=== PATIENT | female | born 1940 | race Caucasian/White ===

== ENCOUNTER 2018-06-08 00:14 | Outpatient (CLI) | payer MEDICARE, BC, OTHER ==
[2018-06-08 12:30] LABS: #Basophils 0.1 thou/uL (0.0-0.2); #Eosinphils 0.3 thou/uL (0.0-0.7); #Lymphocytes 1.7 thou/uL (1.20-3.40); #Monocytes 0.6 thou/uL (0.11-0.59); %Basophils 1.5 % (0.0-1.0); %Eosinophils 4.2 % (0.0-10.0); %Monocytes 8.4 % (0.0-10.0); %Neutrophils 59.9 % (42.0-75.0); Mean Corpuscular HGB CONC 33.1 g/dL (32.0-36.0); Mean Corpuscular Volume 93.5 fL (78.0-98.0); Mean Platelet Volume 7.9 fL (7.4-10.4); Platelet Count 262 thou/uL (130-400); RBC Distribution Width 12.2 % (11.5-14.5); Red Blood Cell (RBC) Count 4.52 mill/uL (4.20-5.40); White Blood Cell (WBC) Count 6.6 thou/uL (4.8-10.8)
--- NOTE | 2018-06-08 12:44 | RAD ---
Chest 2 views HISTORY: Preop. FINDINGS: Cardiac silhouette and pulmonary vasculature are unremarkable. Mediastinum is midline. Lung s are well-inflated. No confluent airspace consolidation, pneumothorax, or pleural fluid are apparent. IMPRESSION: No active cardiopulmonary abnormalities are demonstrated.
[2018-06-08 12:49] LABS: Anion Gap 12 mmol/L (10-20); BUN (Urea Nitrogen) 25 mg/dL (9.8-20.1); Calc. Creatinine Clearance 0 mL/min (70-130); Calcium 7.9 mg/dL (7.8-10.44); Carbon Dioxide 30 mmol/L (23-31); Estimated GFR-MDRD 66; Glucose 92 mg/dL (83-110); Potassium 4.2 mmol/L (3.5-5.1)
[2018-06-08 12:53] LABS: Chloride 102 mmol/L (98-107); Sodium 140 mmol/L (136-145)
--- NOTE | 2018-06-09 22:58 | EKG ---
Test Reason : Blood Pressure : / mmHG Vent. Rate : 073 BPM Atrial Rate : 073 BPM P-R Int : 158 ms QRS Dur : 088 ms QT Int : 408 ms P-R-T Axes : 079 077 078 degrees QTc Int : 449 ms Normal sinus rhythm Possible Left atrial enlargement Anteroseptal infarct , age undetermined Abnormal ECG No previous ECGs available Confirmed by ANGUS HERNANDEZ ([id number]) on 06/09/2018 10:58:17 PM Referred By: BIANCA Confirmed By:ANGUS HERNANDEZ
== END 2018-06-08 00:15 | disposition home or self-care (01) ==
LOC: LABBT 00:14
PROVIDERS: ATTEND Specialist
DX: Z01.818 Encounter for other preprocedural examination (principal); C50.911 Malignant neoplasm of unspecified site of right female breast
CPT/HCPCS: 71046; 80048; 85025; 93005; 93010

== ENCOUNTER → 2018-06-09 | Day surgery (SDC) | payer MEDICARE, BC, OTHER ==
[2018-06-08 11:48] VITALS: BMI 29.5
[~2018-06-09] MED LIST: Bupivacaine/Epinephrine 0.25% 30 ML VIAL ONE; Dexamethasone 20 MG/5 ML VIAL ONE; Fentanyl 100 MCG/2 ML VIAL ONE; Isosulfan Blue 50 MG/5 ML VIAL ONE; Ketorolac Tromethamine 30 MG/ML VIAL ONE; Lidocaine 1% PF 5 ML VIAL ONE; Midazolam HCl 2 mg/2 ml Vial ONE; Ondansetron PF 4 MG/2 ML Vial ONE; PHENYLEPHRINE-NS 100 MCG/ML 10 ML SYRINGE ONE; PROPOFOL 200 MG/20 ML VIAL ONE; ePHEDrine 50 MG/ML VIAL ONE
--- NOTE | 2018-06-09 08:25 | MMO ---
NEEDLE AND WIRE LOCALIZATION UNDER MAMMOGRAPHIC GUIDANCE RIGHT BREAST: CLINICAL HISTORY: History of recent biopsy-proven invasive lobular carcinoma, upper inner right [address] PROCEDURE: Informed consent was obtained. Patient was escorted to the procedural suite and right breast was plac ed into compression. The right breast was prepped and draped in standard sterile fashion and targeting was performed of the site of interest of recent biopsy and adjacent marking clip. Topical a nesthesia was achieved, after which a 7.5 cm Rockwell needle was advanced through the biopsy site. This was confirmed with tangential imaging and the wire was deployed and the needle/wire was stabiliz ed to the right breast. Images were marked for the surgeon. Patient was transferred to nuclear medicine to undergo lymphoscintigraphy of the right breast. IMPRESSION: Technically successful needle and wire localization of right breast. Transcribed Date/Time: 06/09/2018 8:25 AM
--- NOTE | 2018-06-09 10:23 | NM ---
NUCLEAR MEDICINE RIGHT BREAST LYMPHOSCINTIGRAPHY: PROCEDURE: Informed consent was obtained. Patient was escorted to the procedural suite and placed into a supine position. The right breast was sterilized in standard fashion. Subsequently, 4 separate intradermal injections totaling 0.3 9 mCi technetium 99m filtered sulfur colloid was injected into the right breast. No procedural complications. FINDINGS: Scintigraphic activity related to the periareolar injections of right breast. There is activity local izing to right axillary lymph node. IMPRESSION: Technically successful right breast lymphoscintigraphy yielding activity at right axillary lymph node . Transcribed Date/Time: 06/09/2018 10:43 AM
--- NOTE | 2018-06-09 14:48 | MMO ---
SPECIMEN RADIOGRAPH: CLINICAL HISTORY: Right breast cancer, status post needle and wire localization FINDINGS: Specimen radiograph reveals metallic, curved wire, biopsy marking clip, and adjacent parenchymal dens ity. IMPRESSION: Specimen radiograph, as above. Telephone call findings placed to physician, Steven Bull, in the operating suite at 1444 hours . Transcribed Date/Time: 06/09/2018 3:19 PM
--- NOTE | 2018-06-10 12:42 | OP ---
DATE OF PROCEDURE: 06/09/2018 PREOPERATIVE DIAGNOSIS: Right breast lobular carcinoma. POSTOPERATIVE DIAGNOSIS: Right breast lobular carcinoma. OPERATIONS PERFORMED: Right breast needle localized lumpectomy, sentinel lymph node mapping, sentinel lymph node biopsy. ANESTHESIA: General endotracheal. INDICATIONS: The patient is a 77-year-old white female. She had initially presented with an area of architectural abnormality in her right breast on mammography. Biopsy revealed an area of invasive lobular carcinoma. It was difficult to discern the exact size of the lesion. She was taken to the operating room at this time for mammographic needle localization assisted lumpectomy and sentinel node biopsy. Prior to coming to the operating room, she had a successful needle localization performed in Radiology. She also had a lymphoscintigraphy performed revealing a right axillary sentinel lymph node. DESCRIPTION OF OPERATION: Informed consent was obtained. The patient was taken to the operating room, where general endotracheal anesthesia was obtained with the patient in supine position. Right breast and axilla were prepped with ChloraPrep and draped in sterile fashion. 2.5 mL of Lymphazurin was infiltrated in the periareolar subdermal tissue and massaged for 5 minutes. Attention was then turned to the axilla. Local anesthetic was infiltrated using 0.25% Marcaine with epinephrine. Transverse inferior axillary incision was created. Dissection was carried through skin and subcutaneous tissue and carried into the axilla. Neoprobe was utilized to identify areas of maximum radio intensity. With dissection, I was able to identify a single dominant sentinel lymph node. This was still very small and appeared only to be about half a centimeter in maximum dimension. There was some mild blue staining of this. It was removed intact and passed off the field and investing lymphatics were divided between clamps and 3-0 silk ties. I was able to identify some additional tissue that seemed to have some radioactivity, although no blue dye and no definite palpable mass. This was also dissected and removed intact and passed off the field. A thorough examination of the remainder of the axilla revealed no palpable abnormality, no obvious blue staining, and no areas of increased radioactivity. The wound was closed in layers using 3-0 and 4-0 Monocryl. Local anesthetic was instilled in the wound during closure. Attention was turned to the right breast. The localizing needle was advanced into the breast in a superior to inferior fashion. Although I was able to trace the needle, it was difficult to discern exactly where the lesion was within the breast that was of previous concern. The clip was noted to be anterior (superficial) to the needle. The needle was advanced to the full length of 7.5 cm, but the clip was noted to be about mid shaft of the needle at least 3 cm from the tip of the needle. A counter incision was created about 4 cm superior to the nipple in a transverse fashion. Dissection was carried through skin and subcutaneous tissue. Dissection was initially carried superiorly and deeply to identify the localizing needle. This was found at about 5 cm from the tip of the needle. The wire was passed through the skin and through the wound. The tissue into which the wire entered was grasped with an Allis clamp and circumferential dissection was begun. As it was recognized that the clip was anterior to the needle, attempt was made to obtain an appropriately wide margin on the superficial surface of the needle, therefore dissecting inferiorly just deep to the nipple-areolar complex. The wide core of tissue was obtained around the wire and removed intact. It was tagged with several sutures for localization. It was passed off the field for specimen mammography, which did reveal that the clip was present within the lesion. It was then submitted to Pathology. The wound was thoroughly inspected for hemostasis. Electrocautery was utilized as necessary. The wound was irrigated and all irrigant was aspirated. The incision was closed in layers using 3-0 and 4-0 Monocryl suture. Dermabond was placed externally. Dermabond was also placed external to the axillary incision. There were no complications. The patient tolerated the procedure well and was taken to the recovery room in stable condition. Job ID: [id number]
== END ==
LOC: SDC 06:55 → EEVIPCON 11:30
PROVIDERS: ATTEND Specialist
PROC: 0HBT0ZZ Excision of Right Breast, Open Approach (ICD-10-PCS; principal; 2018-06-09)
PROC: 07B50ZX Excision of Right Axillary Lymphatic, Open Approach, Diagnostic (ICD-10-PCS; 2018-06-09)
DX: C50.811 Malignant neoplasm of overlapping sites of right female breast (principal); M85.80 Other specified disorders of bone density and structure, unspecified site; E89.0 Postprocedural hypothyroidism; Z17.0 Estrogen receptor positive status [ER+]; Z79.899 Other long term (current) drug therapy
CPT/HCPCS: 19281; 19301; 38525; 38900; 76098; 78195; 88307; 88342; A9541; Q9968; J0131; J0690; J1100; J1885; J2001; J2250; J2405; J2704; J3010; J3490

== ENCOUNTER 2018-06-25 06:31 | Day surgery (SDC) | payer MEDICARE, BC, OTHER ==
[2018-06-19 09:52] VITALS: BMI 30.9
[2018-06-25] MEDS ORDERED: Ketorolac Tromethamine 30 MG/ML VIAL ONE (07:14)
[2018-06-25] MEDS ORDERED: Bupivacaine/Epinephrine 0.25% 30 ML VIAL ONE ×2 (08:38→09:43)
[2018-06-25] MEDS ORDERED: Fentanyl 100 MCG/2 ML VIAL ONE (08:39)
[2018-06-25] MEDS ORDERED: Lidocaine 1% PF 5 ML VIAL ONE (15:20)
[2018-06-25] MEDS ORDERED: PHENYLEPHRINE-NS 100 MCG/ML 10 ML SYRINGE ONE (15:20)
[2018-06-25] MEDS ORDERED: Ondansetron PF 4 MG/2 ML Vial ONE (15:20)
[2018-06-25] MEDS ORDERED: ePHEDrine 50 MG/ML VIAL ONE (15:20)
[2018-06-25] MEDS ORDERED: PROPOFOL 200 MG/20 ML VIAL ONE (15:20)
--- NOTE | 2018-06-26 14:09 | OP ---
DATE OF PROCEDURE: 06/25/2018 PREOPERATIVE DIAGNOSIS: Right breast lobular cancer with positive margins at the time of lumpectomy. POSTOPERATIVE DIAGNOSIS: Right breast lobular cancer with positive margins at the time of lumpectomy. PROCEDURE PERFORMED: Re-excision of right breast lumpectomy. ANESTHESIA: General endotracheal. INDICATIONS: The patient is a 78-year-old white female. She has right breast lobular cancer. At the time of her surgery, the cancer extended much further and was apparent, and she had positive margins on the anterior aspect, the superior aspect, and was close on the posterior aspect. She was taken to the operating room for re-excision of margins. DESCRIPTION OF PROCEDURE: Informed consent was obtained. She was taken to the operating room, where general anesthesia was obtained with the patient in the supine position. Right breast was prepped with ChloraPrep and draped in sterile fashion. Local anesthetic was infiltrated using 0.25% Marcaine with epinephrine. Prior incision was reopened. Dissection was carried through skin and subcutaneous tissue until I entered the prior biopsy cavity. I first dissected the inferior aspect of the anterior margin. I then dissected the superior aspect of the anterior margin. I finally dissected the superior margin extending down onto the posterior aspect. Each of the three margins was submitted separately. They were each tagged with suture for orientation. Meticulous hemostasis was obtained within the wound. The wound was then closed in layers with 3-0 and 4-0 Monocryl. Additional local anesthetic was instilled in the wound during closure. Dermabond was placed externally. There were no complications. The patient tolerated the procedure well and was taken to recovery room in stable condition. Job ID: [id number]
== END 2018-06-25 11:55 | disposition home or self-care (01) ==
LOC: SDC 06:31
PROVIDERS: ATTEND Specialist
PROC: 0HBT0ZZ Excision of Right Breast, Open Approach (ICD-10-PCS; principal; 2018-06-25)
DX: C50.811 Malignant neoplasm of overlapping sites of right female breast (principal); M85.80 Other specified disorders of bone density and structure, unspecified site; E89.0 Postprocedural hypothyroidism; Z17.0 Estrogen receptor positive status [ER+]; Z79.899 Other long term (current) drug therapy
CPT/HCPCS: 88307; 88342; J0131; J0690; J1885; J2001; J2405; J2704; J3010; J3490

== ENCOUNTER 2018-07-07 09:42 | Day surgery (SDC) | payer MEDICARE, BC, OTHER ==
[2018-07-03 12:51] VITALS: BMI 29.2
[2018-07-07] MEDS ORDERED: Ketorolac Tromethamine 30 MG/ML VIAL ONE (10:37)
[2018-07-07] MEDS ORDERED: Bupivacaine/Epinephrine 0.25% 30 ML VIAL ONE (11:24)
[2018-07-07] MEDS ORDERED: Lidocaine 2% Jelly 5 ML TUBE ONE (11:26)
[2018-07-07] MEDS ORDERED: Fentanyl 100 MCG/2 ML VIAL ONE (11:26)
[2018-07-07] MEDS ORDERED: PROPOFOL 200 MG/20 ML VIAL ONE (14:12)
[2018-07-07] MEDS ORDERED: Lidocaine 1% PF 5 ML VIAL ONE (14:12)
[2018-07-07] MEDS ORDERED: Ondansetron PF 4 MG/2 ML Vial ONE (14:12)
[2018-07-07] MEDS ORDERED: PHENYLEPHRINE-NS 100 MCG/ML 10 ML SYRINGE ONE (14:12)
[2018-07-07] MEDS ORDERED: ePHEDrine 50 MG/ML VIAL ONE (14:12)
[2018-07-07] MEDS ORDERED: Dexamethasone 20 MG/5 ML VIAL ONE (14:12)
--- NOTE | 2018-07-08 12:12 | OP ---
DATE OF PROCEDURE: 07/07/2018 PREOPERATIVE DIAGNOSIS: Lobular breast cancer of the right breast, with positive anterior margin at the time of her most recent surgery. She has returned to the operating room for a second re-excision of her lumpectomy. DESCRIPTION OF OPERATION: Informed consent was obtained. The patient was taken to the operating room, where general anesthesia was obtained with the patient in supine position. Right breast was prepped with ChloraPrep and draped in sterile fashion. Local anesthetic was infiltrated using 0.25% Marcaine with epinephrine. Prior incision was re-opened. Dissection was carried through skin, subcutaneous tissue, and the breast tissue down into the old lumpectomy cavity. The seroma at the old lumpectomy cavity was aspirated. Positive margin had been on the superior aspect of the anterior margin. I therefore began dissection on the superior aspect of the anterior margin, obtaining another 3 to 4 mm from the lumpectomy cavity, which was about 3 to 4 mm deep to the skin. Dissection was carried superiorly along the entire anterior margin. At one point, the dissection was carried up to immediately beneath the skin, such that dermis was visible. The specimen was removed intact. It was tagged with sutures for orientation and submitted to Pathology. The wound was irrigated, and all irrigant was aspirated. Meticulous hemostasis was obtained with electrocautery. The wound was closed in layers with 3-0 and 4-0 Monocryl suture. Dermabond was placed externally. There were no complications. The patient tolerated the procedure well and was taken to recovery room in stable condition. Job ID: [id number]
== END 2018-07-07 13:45 | disposition home or self-care (01) ==
LOC: SDC 09:42
PROVIDERS: ATTEND Specialist
PROC: 0HBT0ZZ Excision of Right Breast, Open Approach (ICD-10-PCS; principal; 2018-07-07)
DX: C50.911 Malignant neoplasm of unspecified site of right female breast (principal); M85.80 Other specified disorders of bone density and structure, unspecified site; Z17.0 Estrogen receptor positive status [ER+]
CPT/HCPCS: 88305; J0131; J0690; J1100; J1885; J2001; J2405; J2704; J3010; J3490

== ENCOUNTER 2018-09-22 09:32 | Outpatient (CLI) | payer MEDICARE, BC, OTHER ==
--- NOTE | 2018-09-22 10:20 | BD ---
EXAM: DEXA bone density examination HISTORY: 78-year-old postmenopausal female for screening COMPARISON: None FINDINGS: L1--bone mineral density 1.041 g/sq cm; T score 0.5 L2--bone mineral density 1.164 g/sq cm; T score 1.2 L3--bone mineral density 1.270 g/sq cm; T score 1.7 L4--bone mineral density 1.203 g/sq cm; T score 1.3 Total L1-L4--bone mineral density 1.177 g/sq cm; T score 1.2 Left femoral neck--bone mineral density0.840; T score -0.1 Total proximal left femur--bone mineral density 0.972; T score 0.2 IMPRESSION: Normal bone mineral density.
== END 2018-09-22 09:33 | disposition home or self-care (01) ==
LOC: BICMAMMO 09:32
PROVIDERS: ATTEND Family Medicine
DX: M85.80 Other specified disorders of bone density and structure, unspecified site (principal)
CPT/HCPCS: 77080

== ENCOUNTER 2019-06-02 11:50 | Outpatient (CLI) | payer MEDICARE, BC, OTHER ==
[~2019-06-02 11:50] MED LIST changes: -Bupivacaine/Epinephrine 0.25% 30 ML VIAL ONE; -Dexamethasone 20 MG/5 ML VIAL ONE; -Fentanyl 100 MCG/2 ML VIAL ONE; +Iopamidol 370 76% 100 ML VIAL ONE; -Isosulfan Blue 50 MG/5 ML VIAL ONE; -Ketorolac Tromethamine 30 MG/ML VIAL ONE; -Lidocaine 1% PF 5 ML VIAL ONE; -Midazolam HCl 2 mg/2 ml Vial ONE; -Ondansetron PF 4 MG/2 ML Vial ONE; -PHENYLEPHRINE-NS 100 MCG/ML 10 ML SYRINGE ONE; -PROPOFOL 200 MG/20 ML VIAL ONE; -ePHEDrine 50 MG/ML VIAL ONE
--- NOTE | 2019-06-02 15:33 | CT ---
CTA NECK WITH CONTRAST: Axial tomograms were obtained with multiplanar reconstruction following an angio protocol and multipl anabelle reconstruction and 3D postprocessing. INDICATION: Carotid stenosis. Syncopal episode. COMPARISON: There are no comparison exams. FINDINGS: Origin of the arch vessels appears unremarkable with no stenosis. There is a common origin of the in nominate and left common carotid. Both common carotid arteries are patent with no stenosis. There is diffuse dense calcification in the bulb and proximal right ICA. This results in only mild s tenosis. No evidence of hemodynamically significant stenosis in the right ICA. There is also calcified plaque in the left bulb and the proximal left ICA. There is also associated noncalcified plaque in the proximal left ICA. This does result in stenosis which appears to approach 50% diameter by NASCENT criteria. There is mild ulceration also identified at this site. The left ICA above this focus of stenosis is unremarkable. Vertebral arteries are patent. There is a dominant right vertebral. The left vertebral terminates i n PICA. No soft tissue abnormality identified. IMPRESSION: Atherosclerotic calcification is seen in both bulbs and proximal internal carotid arteries. There is evidence of hemodynamically significant stenosis in the proximal left internal carotid artery. Sergio mmend correlation with catheter angiogram for confirmation. POS: [facility]
== END 2019-06-02 11:51 | disposition home or self-care (01) ==
LOC: BICCT 11:50
PROVIDERS: ATTEND Thoracic Surgery (Cardiothoracic Vascular Surgery)
DX: I65.23 Occlusion and stenosis of bilateral carotid arteries (principal)
CPT/HCPCS: 70498; Q9967

== ENCOUNTER 2020-10-02 09:58 | Outpatient (CLI) | payer MEDICARE, BC, OTHER | END 2020-10-02 09:59 | disposition home or self-care (01) | LOC: BICMAMMO 09:58 | PROVIDERS: ATTEND Internal Medicine Hematology & Oncology | DX: Z13.820 Encounter for screening for osteoporosis (principal); N95.8 Other specified menopausal and perimenopausal disorders; T38.6X5A Adverse effect of antigonadotrophins, antiestrogens, antiandrogens, not elsewhere classified, initial encounter; Z85.3 Personal history of malignant neoplasm of breast | CPT/HCPCS: 77066; 77080; G0279 ==

== ENCOUNTER 2020-11-02 10:45 | Inpatient (IN) | payer MEDICARE, BC, OTHER ==
[2020-12-25 11:12] VITALS: BMI 26.6
[2020-12-26] MEDS ORDERED: Sodium Chloride 0.9% 100 ML ONE (06:05)
[2020-12-26] MEDS ORDERED: Tranexamic Acid 1,000 MG/10 ML VIAL ONE (06:05)
[2020-12-26] MEDS ORDERED: Vancomycin 1 GM/200 ML BAG ONE (06:05)
[2020-12-26] MEDS ORDERED: Fentanyl 100 MCG/2 ML VIAL ONE ×3 (06:14→09:30)
[2020-12-26] MEDS ORDERED: Midazolam HCl 2 mg/2 ml Vial ONE (06:14)
[2020-12-26] MEDS ORDERED: Ropivacaine 2% HCl/PF (20 MG/10 ML VIAL) ONE (07:31)
[2020-12-26] MEDS ORDERED: ePHEDrine 50 MG/ML VIAL ONE (07:31)
[2020-12-26] MEDS ORDERED: Bupivacaine HCl 0.5%/Epinephrine 1:200,000/PF 30 ml Vial ONE (07:31)
[2020-12-26] MEDS ORDERED: Ondansetron PF 4 MG/2 ML Vial ONE (07:31)
[2020-12-26] MEDS ORDERED: PROPOFOL 200 MG/20 ML VIAL ONE (07:31)
[2020-12-26] MEDS ORDERED: Lidocaine 1% PF 5 ML VIAL ONE (07:31)
[2020-12-26] MEDS ORDERED: Fentanyl 100 MCG/2 ML VIAL IV PRN (07:32)
[2020-12-26] MEDS ORDERED: Zolpidem Tartrate 5 MG TAB PO PRN ×2 (07:45→09:30)
[2020-12-26] MEDS ORDERED: HYDROcodone/Acetaminophen 10/325 mg Tablet PO PRN ×3 (07:45→09:30)
[2020-12-26] MEDS ORDERED: traMADol HCl 50 MG TAB PO PRN ×2 (07:45→09:30)
[2020-12-26] MEDS ORDERED: Ropivacaine HCl/PF 250 ML in Premix Bag 1 BAG NERVE BLCK SCH (07:45)
[2020-12-26] MEDS ORDERED: Promethazine HCl 25 MG/ML VIAL IM PRN ×3 (07:45→09:30)
[2020-12-26] MEDS ORDERED: EPINEPHrine 1 MG/ML AMP ONE (08:02)
[2020-12-26] MEDS ORDERED: Bupivacaine 0.25% HCL 30 ML VIAL ONE (08:02)
[2020-12-26] MEDS ORDERED: Ondansetron HCl/PF 4 MG/2 ML Vial IVP PRN (09:19)
[2020-12-26] MEDS ORDERED: Promethazine HCl 25 MG/ML VIAL IVPB PRN (09:19)
[2020-12-26] MEDS ORDERED: Morphine Sulfate 2 MG/ML SYRINGE SLOW IVP PRN (09:19)
[2020-12-26] MEDS ORDERED: Fentanyl 100 MCG/2 ML VIAL SLOW IVP PRN ×2 (09:30)
[2020-12-26] MEDS ORDERED: Ketorolac Tromethamine 30 MG/ML VIAL IVP PRN (09:30)
[2020-12-26] MEDS ORDERED: Ondansetron PF 4 MG/2 ML Vial IVP PRN (09:30)
[2020-12-26] MEDS ORDERED: diphenhydrAMINE 25 MG CAP PO PRN (09:30)
[2020-12-26] MEDS ORDERED: Multivitamin W/ Minerals 1 TAB PO SCH (09:45)
[2020-12-26] MEDS ORDERED: Ferrous Gluconate 324 MG TAB PO SCH (09:45)
[2020-12-26] MEDS ORDERED: Senokot S 8.6-50 MG TAB PO SCH (09:45)
[2020-12-26] MEDS: Sodium Chloride 0.9% 1,000 ML IV SCH ×2 (16:23→21:45)
[2020-12-26] MEDS: Ketorolac Tromethamine 30 MG/ML VIAL IVP SCH ×3 (16:24→23:14)
[2020-12-26] MEDS: CEFAZOLIN 2 GM, Admixture Fee 1 EACH in Sodium Chloride 0.9% 100 ML IVPB SCH ×2 (16:25→23:13)
[2020-12-26] MEDS: Ferrous Gluconate 324 MG TAB PO SCH (17:00)
[2020-12-26] MEDS ORDERED: Vancomycin 1 GM in Premix Bag 1 BAG IVPB SCH (18:00)
[2020-12-26] MEDS: Senokot S 8.6-50 MG TAB PO SCH (20:05)
[2020-12-26] MEDS: Aspirin 81 mg Enteric Coated Tablet PO SCH (20:07)
[2020-12-27] MEDS: Ketorolac Tromethamine 30 MG/ML VIAL IVP SCH ×4 (05:17→23:34)
[2020-12-27] MEDS: HYDROcodone/Acetaminophen 10/325 mg Tablet PO PRN ×4 (05:18→23:41)
[2020-12-27 06:00] LABS: Hemoglobin 10.5 g/dL (12.0-16.0); Mean Corpuscular HGB CONC 32.9 g/dL (32.0-36.0); Mean Corpuscular Hemoglobin 31.7 pg (27.0-31.0); Mean Corpuscular Volume 96.2 fL (78.0-98.0); Mean Platelet Volume 8.1 fL (7.4-10.4); Platelet Count 207 thou/uL (130-400); RBC Distribution Width 11.8 % (11.5-14.5); Red Blood Cell (RBC) Count 3.31 mill/uL (4.20-5.40); White Blood Cell (WBC) Count 11.2 thou/uL (4.8-10.8)
[2020-12-27] MEDS: Sodium Chloride 0.9% 1,000 ML IV SCH ×2 (06:18→18:02)
[2020-12-27] MEDS: Aspirin 81 mg Enteric Coated Tablet PO SCH ×2 (09:47→20:38)
[2020-12-27] MEDS: Ferrous Gluconate 324 MG TAB PO SCH ×2 (09:47→17:55)
[2020-12-27] MEDS: Senokot S 8.6-50 MG TAB PO SCH ×2 (09:47→20:38)
[2020-12-27] MEDS: Multivitamin W/ Minerals 1 TAB PO SCH (09:48)
[2020-12-28] MEDS: Ketorolac Tromethamine 30 MG/ML VIAL IVP SCH (05:24)
[2020-12-28] MEDS: HYDROcodone/Acetaminophen 10/325 mg Tablet PO PRN ×2 (05:25→21:01)
[2020-12-28] MEDS: Sodium Chloride 0.9% 1,000 ML IV SCH ×2 (05:33→15:15)
[2020-12-28 06:36] LABS: Hemoglobin 10.1 g/dL (12.0-16.0); Mean Corpuscular HGB CONC 33.7 g/dL (32.0-36.0); Mean Corpuscular Hemoglobin 32.4 pg (27.0-31.0); Mean Corpuscular Volume 96.3 fL (78.0-98.0); Platelet Count 181 thou/uL (130-400); RBC Distribution Width 11.9 % (11.5-14.5); Red Blood Cell (RBC) Count 3.11 mill/uL (4.20-5.40)
[2020-12-28] MEDS: Ondansetron PF 4 MG/2 ML Vial IVP PRN (08:54)
[2020-12-28] MEDS: Aspirin 81 mg Enteric Coated Tablet PO SCH ×2 (09:01→20:57)
[2020-12-28] MEDS: Multivitamin W/ Minerals 1 TAB PO SCH (09:01)
[2020-12-28] MEDS: Senokot S 8.6-50 MG TAB PO SCH ×2 (09:01→20:59)
[2020-12-28] MEDS: Ferrous Gluconate 324 MG TAB PO SCH ×2 (09:01→18:40)
[2020-12-28] MEDS ORDERED: hydrALAZINE 20 MG/ML VIAL SLOW IVP PRN (21:57)
[2020-12-28] MEDS ORDERED: Labetalol HCl 100 MG/20 ML VIAL SLOW IVP PRN (21:58)
[2020-12-29] MEDS: HYDROcodone/Acetaminophen 10/325 mg Tablet PO PRN (04:04)
[2020-12-29] MEDS: Levothyroxine Sodium 112 MCG TAB PO SCH (05:21)
[2020-12-29 05:56] LABS: Hemoglobin 10.2 g/dL (12.0-16.0); Mean Corpuscular HGB CONC 33.4 g/dL (32.0-36.0); Mean Corpuscular Hemoglobin 32.2 pg (27.0-31.0); Mean Corpuscular Volume 96.4 fL (78.0-98.0); Mean Platelet Volume 8.3 fL (7.4-10.4); Platelet Count 215 thou/uL (130-400); RBC Distribution Width 11.9 % (11.5-14.5); Red Blood Cell (RBC) Count 3.16 mill/uL (4.20-5.40); White Blood Cell (WBC) Count 10.8 thou/uL (4.8-10.8)
[2020-12-29] MEDS: Sodium Chloride 0.9% 1,000 ML IV SCH ×2 (07:45→17:35)
[2020-12-29] MEDS ORDERED: Lisinopril 10 MG TAB PO SCH (09:00)
[2020-12-29] MEDS: Ondansetron PF 4 MG/2 ML Vial IVP PRN (09:41)
[2020-12-29] MEDS: Anastrozole 1 MG TAB PO SCH (09:46)
[2020-12-29] MEDS: Aspirin 81 mg Enteric Coated Tablet PO SCH (09:47)
[2020-12-29] MEDS: Acetaminophen 325 MG TAB PO PRN ×2 (09:47→13:17)
[2020-12-29] MEDS: traMADol HCl 50 MG TAB PO PRN ×2 (09:48→13:18)
[2020-12-29] MEDS: Senokot S 8.6-50 MG TAB PO SCH ×2 (09:50→20:36)
[2020-12-29] MEDS: Calcium Carbonate 500 MG TAB PO SCH (09:51)
[2020-12-29] MEDS: Multivitamin W/ Minerals 1 TAB PO SCH (10:08)
[2020-12-29] MEDS: Ferrous Gluconate 324 MG TAB PO SCH (10:08)
[2020-12-29 14:56] LABS: Anion Gap 15 mmol/L (10-20); BUN (Urea Nitrogen) 20 mg/dL (9.8-20.1); Calc. Creatinine Clearance 79 mL/min (70-130); Calcium 6.9 mg/dL (7.8-10.44); Carbon Dioxide 27 mmol/L (23-31); Chloride 100 mmol/L (98-107); Glucose 131 mg/dL (83-110); Potassium 3.8 mmol/L (3.5-5.1); Sodium 138 mmol/L (136-145)
[2020-12-29] MEDS ORDERED: Atorvastatin Calcium 10 MG TAB PO SCH (21:00)
[2020-12-30] MEDS: Sodium Chloride 0.9% 1,000 ML IV SCH ×2 (04:01→12:39)
[2020-12-30] MEDS: Levothyroxine Sodium 112 MCG TAB PO SCH (05:29)
[2020-12-30] MEDS: traMADol HCl 50 MG TAB PO PRN (05:29)
[2020-12-30 06:30] LABS: Hemoglobin 10.8 g/dL (12.0-16.0); Mean Corpuscular Volume 97.1 fL (78.0-98.0); Mean Platelet Volume 7.4 fL (7.4-10.4); Platelet Count 270 thou/uL (130-400); RBC Distribution Width 11.9 % (11.5-14.5); Red Blood Cell (RBC) Count 3.49 mill/uL (4.20-5.40); White Blood Cell (WBC) Count 8.4 thou/uL (4.8-10.8)
[2020-12-30 06:55] LABS: Anion Gap 15 mmol/L (10-20); BUN (Urea Nitrogen) 20 mg/dL (9.8-20.1); Calc. Creatinine Clearance 82 mL/min (70-130); Calcium 6.6 mg/dL (7.8-10.44); Carbon Dioxide 28 mmol/L (23-31); Chloride 99 mmol/L (98-107); Glucose 100 mg/dL (83-110); Potassium 3.5 mmol/L (3.5-5.1); Sodium 138 mmol/L (136-145)
[2020-12-30] MEDS: Senokot S 8.6-50 MG TAB PO SCH (08:40)
[2020-12-30] MEDS: Aspirin 81 mg Enteric Coated Tablet PO SCH (08:41)
[2020-12-30] MEDS: Calcium Carbonate 500 MG TAB PO SCH (08:41)
[2020-12-30] MEDS: Anastrozole 1 MG TAB PO SCH (08:41)
[2020-12-30] MEDS ORDERED: Lisinopril 20 MG TAB PO SCH (09:00)
[2020-12-30 11:42] VITALS: BP 157/70; TEMP 98.3
[2020-12-30] MEDS: Acetaminophen 325 MG TAB PO PRN (11:56)
== END 2020-12-30 13:50 | disposition home or self-care (01) | DRG 470 ==
LOC: SURG A 12-26 05:39 → SJJU 12-26 10:38
PROVIDERS: ADMIT Orthopaedic Surgery; ATTEND Orthopaedic Surgery
PROC: 0SRC0J9 Replacement of Right Knee Joint with Synthetic Substitute, Cemented, Open Approach (ICD-10-PCS; principal; 2020-12-26)
DX: M17.11 Unilateral primary osteoarthritis, right knee (principal); I10 Essential (primary) hypertension; E03.9 Hypothyroidism, unspecified; E78.5 Hyperlipidemia, unspecified; R11.2 Nausea with vomiting, unspecified; T40.2X5A Adverse effect of other opioids, initial encounter; G89.18 Other acute postprocedural pain; Z90.711 Acquired absence of uterus with remaining cervical stump; Z90.89 Acquired absence of other organs; Z90.49 Acquired absence of other specified parts of digestive tract
CPT/HCPCS: 36415; 80048; 85027; C1713; C1776; J0171; J0360; J0690; J1885; J2250; J2405; J2550; J2704; J2795; J3010; J3370; J3490; S0020

== ENCOUNTER 2020-12-21 10:28 | Outpatient (CLI) | payer MEDICARE, BC, OTHER ==
[2020-12-21 12:15] LABS: INR-International Normal Ratio 0.9; Prothrombin Time 10.5 sec (9.5-12.1)
[2020-12-21 12:19] LABS: Anion Gap 16 mmol/L (10-20); BUN (Urea Nitrogen) 26 mg/dL (9.8-20.1); Calc. Creatinine Clearance 0 mL/min (70-130); Calcium 8.2 mg/dL (7.8-10.44); Carbon Dioxide 30 mmol/L (23-31); Chloride 103 mmol/L (98-107); Glucose 112 mg/dL (83-110); Potassium 4.9 mmol/L (3.5-5.1); Sodium 144 mmol/L (136-145)
[2020-12-21 12:22] LABS: #Basophils 0.1 10x3/uL (0.0-0.2); #Eosinphils 0.3 10x3/uL (0.0-0.5); #Monocytes 0.5 10x3/uL (0.0-1.1); %Basophils 1.2 % (0.0-2.0); %Eosinophils 5.6 % (0.0-6.0); %Lymphocytes 23.4 % (18.0-47.0); %Monocytes 9.4 % (0.0-10.0); %Neutrophils 60.2 % (40.0-75.0); Hemoglobin 12.5 g/dL (12.0-15.5); Mean Corpuscular HGB CONC 31.6 g/dL (32.0-36.0); Mean Corpuscular Hemoglobin 30.2 pg (27.0-33.0); Mean Corpuscular Volume 95.4 fl (81.6-98.3); Mean Platelet Volume 10.7 fl (7.4-10.4); Platelet Count 259 10x3/uL (150-450); RBC Distribution Width 13.1 % (11.5-14.5); Red Blood Cell (RBC) Count 4.14 10x6/uL (3.90-5.03)
[2020-12-22 00:05] LABS: SARS-CoV-2 PCR by NAA Not Detected (NotDetected)
== END 2020-12-21 10:29 | disposition home or self-care (01) ==
LOC: LABBT 10:28
PROVIDERS: ATTEND Orthopaedic Surgery
DX: Z01.818 Encounter for other preprocedural examination (principal); M17.11 Unilateral primary osteoarthritis, right knee; Z20.822 Contact with and (suspected) exposure to COVID-19
CPT/HCPCS: 80048; 85025; 85610; 87081; 93005; U0003; U0005; 93010

== ENCOUNTER 2021-10-20 19:07 | Inpatient (IN) | payer MEDICARE, BC, OTHER ==
[2021-10-20 19:42] VITALS: BMI 28.3
[2021-10-20] MEDS ORDERED: Senokot S 8.6-50 MG TAB PO PRN (20:19)
[2021-10-20] MEDS ORDERED: Ondansetron PF 4 MG/2 ML Vial IVP PRN (20:19)
[2021-10-20] MEDS ORDERED: Bisacodyl 5 MG TAB PO PRN (20:19)
[2021-10-20] MEDS ORDERED: Ondansetron ODT 4 MG TAB PO PRN (20:19)
[2021-10-20] MEDS: Sodium Chloride 0.9% 1,000 ML IV SCH (20:45)
[2021-10-20 21:22] LABS: Bacteria/HPF None Seen HPF (None Seen); Bilirubin Negative (Negative); Blood, Urine 1+ (Negative); Clarity Clear (Clear); Glucose, Urine (Dipstick) Normal (Negative); Ketone, Urine 20 mg/dL (Negative); Leukocyte 25 Leu/uL (Negative); Nitrite Negative (Negative); Protein, Urine (Dipstick) 20 mg/dL (Neg-Trace); RBC/HPF 0-3 HPF (0-3); Specific Gravity, Urine 1.046 (1.002-1.036); Squamous Epithelial None Seen HPF (0-3); Urobilinogen Normal mg/dL (Less than 2); pH, Urine 5.5 (5.0-9.0)
[2021-10-20 21:30] LABS: WBC/HPF 0-3 HPF (0-3)
[2021-10-20 21:31] LABS: Urine Culture Reflex Yes Yes
[2021-10-20 21:49] LABS: SARS-CoV-2 NAA Rapid Test Not Detected (NotDetected)
[2021-10-21] MEDS: Levothyroxine Sodium 112 MCG TAB PO SCH (05:01)
[2021-10-21 05:34] LABS: #Eosinphils 0.3 thou/uL (0.0-0.7); #Lymphocytes 1.8 thou/uL (1.20-3.40); #Monocytes 0.7 thou/uL (0.11-0.59); #Neutrophils 4.2 thou/uL (1.40-6.50); %Basophils 0.7 % (0.0-1.0); %Eosinophils 4.5 % (0.0-10.0); %Lymphocytes 25.7 % (21.0-51.0); %Monocytes 9.9 % (0.0-10.0); %Neutrophils 59.2 % (42.0-75.0); Hemoglobin 11.4 g/dL (12.0-16.0); Mean Corpuscular HGB CONC 33.8 g/dL (32.0-36.0); Mean Corpuscular Hemoglobin 32.8 pg (27.0-31.0); Mean Corpuscular Volume 97.2 fL (78.0-98.0); Platelet Count 206 thou/uL (130-400); RBC Distribution Width 12.5 % (11.5-14.5); Red Blood Cell (RBC) Count 3.48 mill/uL (4.20-5.40)
[2021-10-21 05:51] LABS: Anion Gap 16 mmol/L (10-20); BUN (Urea Nitrogen) 31 mg/dL (9.8-20.1); Calc. Creatinine Clearance 66 mL/min (70-130); Calcium 6.4 mg/dL (7.8-10.44); Carbon Dioxide 24 mmol/L (23-31); Chloride 108 mmol/L (98-107); Estimated GFR 73; Glucose 88 mg/dL (83-110); Potassium 3.7 mmol/L (3.5-5.1); Sodium 144 mmol/L (136-145)
[2021-10-21] MEDS ORDERED: Carvedilol 6.25 MG TAB PO SCH (08:00)
[2021-10-21] MEDS: Sodium Chloride 0.9% 1,000 ML IV SCH ×2 (08:22→17:18)
[2021-10-21] MEDS: Aspirin 81 mg Enteric Coated Tablet PO SCH (08:23)
[2021-10-21] MEDS: Anastrozole 1 MG TAB PO SCH (08:23)
[2021-10-21] MEDS: Lisinopril 10 MG TAB PO SCH (08:23)
[2021-10-21] MEDS: Enoxaparin Sodium 40 MG/0.4 ML SYRINGE SC SCH (08:24)
[2021-10-21] MEDS: Carvedilol 6.25 MG TAB PO SCH (17:17)
[2021-10-21] MEDS: Atorvastatin Calcium 10 MG TAB PO SCH (20:01)
[2021-10-22] MEDS: Sodium Chloride 0.9% 1,000 ML IV SCH (03:15)
[2021-10-22] MEDS: Levothyroxine Sodium 112 MCG TAB PO SCH (04:32)
[2021-10-22 05:04] LABS: #Basophils 0.1 thou/uL (0.0-0.2); #Eosinphils 0.3 thou/uL (0.0-0.7); #Lymphocytes 1.5 thou/uL (1.20-3.40); #Monocytes 0.5 thou/uL (0.11-0.59); #Neutrophils 3.1 thou/uL (1.40-6.50); %Basophils 0.9 % (0.0-1.0); %Eosinophils 5.9 % (0.0-10.0); %Lymphocytes 27.3 % (21.0-51.0); %Monocytes 9.3 % (0.0-10.0); %Neutrophils 56.6 % (42.0-75.0); Hemoglobin 11.2 g/dL (12.0-16.0); Mean Corpuscular Hemoglobin 32.5 pg (27.0-31.0); Mean Corpuscular Volume 98.3 fL (78.0-98.0); Mean Platelet Volume 7.8 fL (7.4-10.4); Platelet Count 201 thou/uL (130-400); RBC Distribution Width 12.6 % (11.5-14.5); Red Blood Cell (RBC) Count 3.45 mill/uL (4.20-5.40); White Blood Cell (WBC) Count 5.5 thou/uL (4.8-10.8)
[2021-10-22 05:24] LABS: ALT (SGPT) 20 U/L (8-55); AST (SGOT) 26 U/L (5-34); Albumin 3.7 g/dL (3.4-4.8); Alkaline Phosphatase 56 U/L (40-110); Anion Gap 16 mmol/L (10-20); BUN (Urea Nitrogen) 18 mg/dL (9.8-20.1); Bilirubin, Total 0.3 mg/dL (0.2-1.2); Calc. Creatinine Clearance 83 mL/min (70-130); Calcium 6.1 mg/dL (7.8-10.44); Carbon Dioxide 23 mmol/L (23-31); Chloride 109 mmol/L (98-107); Estimated GFR 89; Globulin 2.2 g/dL (2.4-3.5); Glucose 99 mg/dL (83-110); Potassium 3.5 mmol/L (3.5-5.1); Protein, Total 5.9 g/dL (5.8-8.1); Sodium 144 mmol/L (136-145)
[2021-10-22 05:27] LABS: Troponin I Less than 0.010 ng/mL (< 0.028)
[2021-10-22] MEDS: Anastrozole 1 MG TAB PO SCH (08:23)
[2021-10-22] MEDS: Carvedilol 6.25 MG TAB PO SCH ×2 (08:23→17:50)
[2021-10-22] MEDS: Enoxaparin Sodium 40 MG/0.4 ML SYRINGE SC SCH (08:24)
[2021-10-22] MEDS: Lisinopril 10 MG TAB PO SCH ×2 (08:24→20:23)
[2021-10-22] MEDS: Aspirin 81 mg Enteric Coated Tablet PO SCH (08:24)
[2021-10-22] MEDS: hydrALAZINE 20 MG/ML VIAL SLOW IVP PRN ×2 (08:25→15:09)
[2021-10-22] MEDS ORDERED: Sodium Chloride 0.9% 1,000 ML IV SCH (11:15)
[2021-10-22] MEDS: Atorvastatin Calcium 10 MG TAB PO SCH (20:22)
[2021-10-23] MEDS: Acetaminophen 325 MG TAB PO PRN ×2 (00:26→07:53)
[2021-10-23] MEDS: Enoxaparin Sodium 40 MG/0.4 ML SYRINGE SC SCH ×2 (04:01→10:11)
[2021-10-23 05:02] LABS: #Basophils 0.1 thou/uL (0.0-0.2); #Eosinphils 0.3 thou/uL (0.0-0.7); #Lymphocytes 1.5 thou/uL (1.20-3.40); #Monocytes 0.7 thou/uL (0.11-0.59); #Neutrophils 4.5 thou/uL (1.40-6.50); %Basophils 0.8 % (0.0-1.0); %Eosinophils 4.9 % (0.0-10.0); %Monocytes 10.4 % (0.0-10.0); %Neutrophils 62.9 % (42.0-75.0); Hemoglobin 11.5 g/dL (12.0-16.0); Mean Platelet Volume 7.7 fL (7.4-10.4); Platelet Count 210 thou/uL (130-400); RBC Distribution Width 12.4 % (11.5-14.5); Red Blood Cell (RBC) Count 3.48 mill/uL (4.20-5.40); White Blood Cell (WBC) Count 7.1 thou/uL (4.8-10.8)
[2021-10-23 05:17] LABS: ALT (SGPT) 21 U/L (8-55); AST (SGOT) 24 U/L (5-34); Albumin 3.7 g/dL (3.4-4.8); Alkaline Phosphatase 60 U/L (40-110); Anion Gap 14 mmol/L (10-20); BUN (Urea Nitrogen) 17 mg/dL (9.8-20.1); Bilirubin, Total 0.6 mg/dL (0.2-1.2); Calc. Creatinine Clearance 75 mL/min (70-130); Calcium 6.4 mg/dL (7.8-10.44); Carbon Dioxide 27 mmol/L (23-31); Chloride 105 mmol/L (98-107); Estimated GFR 86; Globulin 2.3 g/dL (2.4-3.5); Glucose 101 mg/dL (83-110); Potassium 3.2 mmol/L (3.5-5.1); Sodium 143 mmol/L (136-145)
[2021-10-23] MEDS: hydrALAZINE 20 MG/ML VIAL SLOW IVP PRN (05:44)
[2021-10-23] MEDS: Levothyroxine Sodium 112 MCG TAB PO SCH (05:44)
[2021-10-23] MEDS ORDERED: Lidocaine 1% PF 5 ML VIAL ONE (07:58)
[2021-10-23] MEDS ORDERED: Electrolyte Replacement Protocol 1 EACH FS SCH (08:30)
[2021-10-23] MEDS ORDERED: Potassium Chloride 20 MEQ TAB PO SCH (09:00)
[2021-10-23 09:06] LABS: Magnesium 1.9 mg/dL (1.6-2.6)
[2021-10-23] MEDS ORDERED: Magnesium 2 GM/50 ML(in water) 2 GM in Premix Bag 1 BAG IVPB SCH (10:00)
[2021-10-23] MEDS: Lisinopril 10 MG TAB PO SCH (10:12)
[2021-10-23] MEDS: Carvedilol 6.25 MG TAB PO SCH ×2 (10:12→16:29)
[2021-10-23] MEDS: Anastrozole 1 MG TAB PO SCH (10:12)
[2021-10-23] MEDS: Aspirin 81 mg Enteric Coated Tablet PO SCH (10:13)
[2021-10-23] MEDS: Calcium Carbonate 600 MG + Vit D TAB PO SCH (16:29)
[2021-10-23] MEDS: Atorvastatin Calcium 10 MG TAB PO SCH (20:03)
[2021-10-24] MEDS: Levothyroxine Sodium 112 MCG TAB PO SCH (05:44)
[2021-10-24 05:48] LABS: Anion Gap 15 mmol/L (10-20); BUN (Urea Nitrogen) 15 mg/dL (9.8-20.1); Calc. Creatinine Clearance 75 mL/min (70-130); Calcium 6.8 mg/dL (7.8-10.44); Carbon Dioxide 27 mmol/L (23-31); Chloride 104 mmol/L (98-107); Estimated GFR 86; Glucose 102 mg/dL (83-110); Potassium 3.6 mmol/L (3.5-5.1); Sodium 142 mmol/L (136-145)
[2021-10-24] MEDS: Calcium Carbonate 600 MG + Vit D TAB PO SCH (09:00)
[2021-10-24] MEDS: Carvedilol 6.25 MG TAB PO SCH (09:00)
[2021-10-24] MEDS: Aspirin 81 mg Enteric Coated Tablet PO SCH (09:01)
[2021-10-24] MEDS: Anastrozole 1 MG TAB PO SCH (09:01)
[2021-10-24 09:04] VITALS: TEMP 97.9
[2021-10-24 11:18] VITALS: BP 102/51
== END 2021-10-24 17:47 | disposition home or self-care (01) | DRG 262 ==
LOC: 2SW 19:07 → OBSVTOIN 10-22 10:57
PROVIDERS: ADMIT Internal Medicine; ATTEND Internal Medicine
PROC: 0JH602Z Insertion of Monitoring Device into Chest Subcutaneous Tissue and Fascia, Open Approach (ICD-10-PCS; principal; 2021-10-23)
DX: I44.7 Left bundle-branch block, unspecified (principal); R55 Syncope and collapse; I10 Essential (primary) hypertension; Z96.651 Presence of right artificial knee joint; E78.2 Mixed hyperlipidemia; E86.0 Dehydration; E89.0 Postprocedural hypothyroidism; I65.23 Occlusion and stenosis of bilateral carotid arteries; E87.6 Hypokalemia; E83.42 Hypomagnesemia; I08.3 Combined rheumatic disorders of mitral, aortic and tricuspid valves; E83.51 Hypocalcemia; D53.9 Nutritional anemia, unspecified; Z20.822 Contact with and (suspected) exposure to COVID-19; Z79.899 Other long term (current) drug therapy; Z79.82 Long term (current) use of aspirin; Z79.890 Hormone replacement therapy; Z90.710 Acquired absence of both cervix and uterus; Z90.89 Acquired absence of other organs; Z98.890 Other specified postprocedural states; Z85.3 Personal history of malignant neoplasm of breast; Z80.1 Family history of malignant neoplasm of trachea, bronchus and lung; Z82.49 Family history of ischemic heart disease and other diseases of the circulatory system
CPT/HCPCS: 33285; 36415; 70551; 80048; 80053; 81001; 83735; 84443; 84484; 85025; 87086; 93306; 93880; 96372; 96374; C1764; G0378; J0360; J1650; J3475; J7050; U0002

== ENCOUNTER 2023-05-01 13:47 | Outpatient (CLI) | payer MEDICARE, BC | END 2023-05-01 13:48 | disposition home or self-care (01) | LOC: BICMAMMO 13:47 | PROVIDERS: ATTEND Family Medicine | DX: Z13.820 Encounter for screening for osteoporosis (principal); Z78.0 Asymptomatic menopausal state | CPT/HCPCS: 77080 ==